=== PATIENT | female | born 1955 | race African-American/Black ===

== ENCOUNTER 2019-04-28 15:47 | Emergency (ER) | payer OTHER ==
[~2019-04-28] VITALS: Ht 160 cm; Wt 77.1 kg
[2019-04-28 17:49] VITALS: BP 129/83
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
[2019-04-28] MEDS ORDERED: IBUPROFEN 200 MG TABLET. PO ONE (18:00)
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
[2019-04-28] MEDS ORDERED: ORPH100T PO (18:45)
[2019-04-28] MEDS ORDERED: IBUP-1007 PO (18:45)
[2019-04-28] MEDS ORDERED: HYDR-3164 PO (18:45)
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
--- NOTE | 2019-04-29 03:17 | EKG ---
[facility] [address] [place] [address] Test Date: 2019-04-28 Test Time: 18:23:14 Pat Name: EDUARDO CRUZ Department: Room: Gender: F Manager Gas: : 1955 Requested By: MODESTO GRIFFIN Order Number: [id number] Reading MD: Measurements Intervals Cache Rate: 56 P: 49 MN: 180 QRS: -9 QRSD: 86 T: -3 QT: 412 QTc: 400 Interpretive Statements SINUS RHYTHM LEFTWARD AXIS T ABNORMALITY IN ANTERIOR LEADS INFEROLATERAL LEADS ABNORMAL ECG RI6.01 No previous ECG available for comparison
== END 2019-04-28 19:06 | disposition home or self-care (01) ==
LOC: ER 15:47
DX: S30.1XXA Contusion of abdominal wall, initial encounter (principal); N13.2 Hydronephrosis with renal and ureteral calculous obstruction; M54.2 Cervicalgia; R51 Headache; Z88.8 Allergy status to other drugs, medicaments and biological substances; V49.9XXA Car occupant (driver) (passenger) injured in unspecified traffic accident, initial encounter; W22.19XA Striking against or struck by other automobile airbag, initial encounter; Y93.89 Activity, other specified; Y92.488 Other paved roadways as the place of occurrence of the external cause; Y99.8 Other external cause status
CPT/HCPCS: 70450; 71046; 72125; 74176; 93005; 99284

== ENCOUNTER 2019-05-03 00:33 | Emergency (ER) | payer BC, OTHER ==
[~2019-05-03] VITALS: Ht 160 cm; Wt 85.3 kg
[~2019-05-03 00:33] MED LIST: HYDR-3164 PO; IBUP-1007 PO; ORPH100T PO
[2019-05-03 01:42] LABS: BILIRUBIN,URINE NEGATIVE (NEG); CLARITY,URINE CLEAR; COLOR,URINE YELLOW; NITRITE,URINE NEGATIVE (NEG); PROTEIN,URINE 30 mg/dL (NEG-TRACE)
[2019-05-03 01:42] LABS: BASO # 0.1 x10^3/uL (0.0-0.2); BASO % 1 % (0-3); EOS # 0.1 x10^3/uL (0.0-0.7); EOS % 1 % (0-3); HEMATOCRIT 38.8 % (36.0-47.0); HEMOGLOBIN 13.1 g/dL (12.0-15.5); LYMPH # 1.8 x10^3/uL (1.0-4.8); LYMPH % 20 % (24-48); MEAN CORPUSCULAR HEMOGLOBIN 31 pg (25-35); MEAN CORPUSCULAR HGB CONC 34 g/dL (31-37); MEAN CORPUSCULAR VOLUME 92 fL (79-100); MONO # 0.6 x10^3/uL (0.0-1.1); MONO % 6 % (0-9); NEUT # 6.2 x10^3/uL (1.8-7.7); NEUT % 71 % (31-73); PLATELET COUNT 248 x10^3/uL (140-400); RED BLOOD COUNT 4.22 x10^6/uL (3.50-5.40); RED CELL DISTRIBUTION WIDTH 13.2 % (11.5-14.5); WHITE BLOOD COUNT 8.7 x10^3/uL (4.0-11.0)
[2019-05-03 01:50] LABS: BACTERIA,URINE MODERATE /HPF (0-FEW); RBC,URINE 20-40 /HPF (0-2); SQUAMOUS EPITHELIAL CELL,UR MOD /LPF
--- NOTE | 2019-05-03 01:56 | PHYS DOC ---
Past Medical History Past Medical History: Hypertension Past Surgical History: Hysterectomy Alcohol Use: None Drug Use: None Adult General Chief Complaint Chief Complaint: FLANK PAIN HPI HPI Patient is a 63 year old -[place] female presents with diffuse abdominal cramping, nausea vomiting in urge to have diarrhea bowel movement starting several hours ago. No fevers chills, patient reports sweats.Reports R flank pain. No urinary frequency urgency or dysuria. Patient evaluated in the emergency department 2 days ago for flank pain with 5 mm proximal R urethral stone. No hematuria. No medications or therapy sticking prior to ED arrival. No prior abdominal surgeries. No history of bowel obstructions. No other acute symptoms or complaints. [] Review of Systems Review of Systems Review symptoms as per history of present illness. All other review symptoms are negative. All other systems were reviewed and found to be within normal limits, except as documented in this note. Current Medications Current Medications Current Medications Medications (Trade) Dose Ordered Sig/Kim Start Time Stop Time Status Last Admin Dose Admin Morphine Sulfate (Morphine Sulfate) 5 mg 1X ONCE 05/03/19 02:00 05/03/19 02:01 DC 05/03/19 01:42 5 MG Ondansetron HCl (Zofran) 4 mg 1X ONCE 05/03/19 02:00 05/03/19 02:01 DC 05/03/19 01:41 4 MG Sodium Chloride 1,000 ml @ 1,000 mls/hr 1X ONCE 05/03/19 02:00 05/03/19 02:59 DC 05/03/19 01:41 1,000 MLS/HR Allergies Allergies Allergies Coded Allergies Type Severity Reaction Last Updated Verified RONI Inhibitors Adverse Reaction Unknown 04/28/19 Yes Physical Exam Physical Exam Constitutional: Well developed, well nourished, no acute distress, non-toxic appearance. [] HENT: Normocephalic, atraumatic, bilateral external ears normal, oropharynx moist, nose normal. [] Eyes: PERRLA, EOMI, conjunctiva normal. [] Neck: Normal range of motion, no tenderness, supple, no stridor. [] Cardiovascular:Heart rate regular rhythm, no murmur [] Lungs & Thorax: Bilateral breath sounds clear to auscultation [] Abdomen: Bowel sounds normal, soft, mild distention, increased bowel sounds.. [] Skin: Warm, dry, no erythema, no rash. [] Back: No tenderness, no CVA tenderness. [] Extremities: No tenderness, no edema. [] Neurologic: Alert and oriented X 3, normal motor function, normal sensory function, no focal deficits noted. [] Psychologic: Affect normal, judgement normal, mood normal. [] Current Patient Data Vital Signs Vital Signs Date Time Temp Pulse Resp B/P (MAP) Pulse Ox O2 Delivery O2 Flow Rate FiO2 05/03/19 03:19 18 98 Nasal Cannula 2.0 05/03/19 02:51 75 193/93 (126) 05/03/19 00:40 98.9 98.9 Lab Values Laboratory Tests Test 05/03/19 00:50 05/03/19 01:00 05/03/19 02:45 Urine Collection Type Unknown Urine Color Yellow Urine Clarity Clear Urine pH 7.0 Urine Specific [place] 1.015 Urine Protein 30 mg/dL (NEG-TRACE) Urine Glucose (UA) Negative mg/dL (NEG) Urine Ketones (Stick) Negative mg/dL (NEG) Urine Blood Moderate (NEG) Urine Nitrite Negative (NEG) Urine Bilirubin Negative (NEG) Urine Urobilinogen Dipstick 1.0 mg/dL (0.2 mg/dL) Urine Leukocyte Esterase Negative (NEG) Urine RBC 20-40 /HPF (0-2) Urine WBC 1-4 /HPF (0-4) Urine Squamous Epithelial Cells Mod /LPF Urine Bacteria Moderate /HPF (0-FEW) Urine Mucus Mod /LPF White Blood Count 8.7 x10^3/uL (4.0-11.0) Red Blood Count 4.22 x10^6/uL (3.50-5.40) Hemoglobin 13.1 g/dL (12.0-15.5) Hematocrit 38.8 % (36.0-47.0) Mean Corpuscular Volume 92 fL (79-100) Mean Corpuscular Hemoglobin 31 pg (25-35) Mean Corpuscular Hemoglobin Concent 34 g/dL (31-37) Red Cell Distribution Width 13.2 % (11.5-14.5) Platelet Count 248 x10^3/uL (140-400) Neutrophils (%) (Auto) 71 % (31-73) Lymphocytes (%) (Auto) 20 % (24-48) L Monocytes (%) (Auto) 6 % (0-9) Eosinophils (%) (Auto) 1 % (0-3) Basophils (%) (Auto) 1 % (0-3) Neutrophils # (Auto) 6.2 x10^3/uL (1.8-7.7) Lymphocytes # (Auto) 1.8 x10^3/uL (1.0-4.8) Monocytes # (Auto) 0.6 x10^3/uL (0.0-1.1) Eosinophils # (Auto) 0.1 x10^3/uL (0.0-0.7) Basophils # (Auto) 0.1 x10^3/uL (0.0-0.2) Sodium Level 139 mmol/L (136-145) Potassium Level 4.0 mmol/L (3.5-5.1) Chloride Level 104 mmol/L (98-107) Carbon Dioxide Level 26 mmol/L (21-32) Anion Gap 9 (6-14) Blood Urea Nitrogen 21 mg/dL (7-20) H Creatinine 1.2 mg/dL (0.6-1.0) H Estimated GFR (Cockcroft-Gault) 54.9 BUN/Creatinine Ratio 18 (6-20) Glucose Level 150 mg/dL (70-99) H Calcium Level 9.4 mg/dL (8.5-10.1) Total Bilirubin 0.4 mg/dL (0.2-1.0) Aspartate Amino Transferase (AST) 21 U/L (15-37) Alanine Aminotransferase (ALT) 20 U/L (14-59) Alkaline Phosphatase 74 U/L (46-116) Total Protein 7.4 g/dL (6.4-8.2) Albumin 3.5 g/dL (3.4-5.0) Albumin/Globulin Ratio 0.9 (1.0-1.7) L Lipase 96 U/L (73-393) Laboratory Tests 05/03/19 01:00 Laboratory Tests 05/03/19 02:45 EKG EKG [] Radiology/Procedures Radiology/Procedures [] Course & Med Decision Making Course & Med Decision Making Pertinent Labs and Imaging studies reviewed. (See chart for details) [Symptoms likely related to right ureteral stone. Patient resting comfortably with treatment. Recommendations are supportive care with PCP/urology follow-up. Return precautions reviewed.] Dragon Disclaimer Dragon Disclaimer This electronic medical record was generated, in whole or in part, using a voice recognition dictation system. Departure Departure Impression: Primary Impression: Acute flank pain Additional Impression: Ureteral stone Disposition: HOME, SELF-CARE Condition: GOOD Referrals: HUEY ROSA (PCP) Patient Instructions: Kidney Stones, [id number] Additional Instructions: Please increase fluids and strain urine for stone. Take medications as directed and follow-up with your PCP in 2-3 days for reevaluation. Return to the ED if new or worsening symptoms Scripts Ondansetron Hcl (ZOFRAN) 4 Mg Tablet 1 TAB PO Q6HRS, #10 TAB 0 Refills Prov: CLAYTON VANN DO 05/03/19 Hydrocodone Bit/Acetaminophen (HYDROCODONE-APAP 10-325 ) 1 Tab Tablet 1 TAB PO PRN Q6HRS PRN for PAIN, #15 TAB 0 Refills Prov: CLAYTON VANN DO 05/03/19 Tamsulosin Hcl (FLOMAX) 0.4 Mg Cap.er.24h 1 CAP PO DAILY, #10 CAP 0 Refills Prov: CLAYTON VANN DO 05/03/19 Problem Qualifiers CLAYTON VANN DO May 03, 2019 01:56
[2019-05-03] MEDS ORDERED: ONDANSETRON PF 4 MG/2 ML VIAL. IVP ONE ×2 (02:00→04:30)
[2019-05-03] MEDS ORDERED: IV NORMAL SALINE 1000ML BAG 1,000 ML IV ONE (02:00)
[2019-05-03] MEDS ORDERED: MORPHINE SULFATE 10 MG/ML VIAL. IV ONE (02:00)
[2019-05-03 03:08] LABS: CALCIUM 9.4 mg/dL (8.5-10.1); CREATININE 1.2 mg/dL (0.6-1.0)
[2019-05-03 03:09] LABS: GFR 54.9
[2019-05-03 03:14] LABS: ALBUMIN 3.5 g/dL (3.4-5.0); ALBUMIN/GLOBULIN RATIO 0.9 (1.0-1.7); TOTAL BILIRUBIN 0.4 mg/dL (0.2-1.0); TOTAL PROTEIN 7.4 g/dL (6.4-8.2)
[2019-05-03] MEDS ORDERED: HYDR-2769 PO (03:40)
[2019-05-03] MEDS ORDERED: ONDA4TAB7 PO (03:40)
[2019-05-03] MEDS ORDERED: TAMS0.4C97 PO (03:40)
[2019-05-03 03:51] VITALS: BP 178/84
[2019-05-03] MEDS ORDERED: KETOROLAC 15 MG/ML VIAL. IVP ONE (04:00)
== END 2019-05-03 04:37 | disposition home or self-care (01) ==
LOC: ER 00:33
DX: N20.1 Calculus of ureter (principal); R10.9 Unspecified abdominal pain; R11.2 Nausea with vomiting, unspecified; R19.7 Diarrhea, unspecified; I10 Essential (primary) hypertension; Z90.710 Acquired absence of both cervix and uterus; Z88.8 Allergy status to other drugs, medicaments and biological substances
CPT/HCPCS: 36415; 80053; 81001; 83690; 85025; 87086; 96361; 96374; 96375; 96376; 99285; J1885; J2270; J2405; J7030

== ENCOUNTER 2019-05-24 13:53 | Emergency (ER) | payer OTHER, BC ==
[~2019-05-24] VITALS: Ht 160 cm; Wt 83.9 kg
[~2019-05-24 13:53] MED LIST changes: +HYDR-2769 PO; +ONDA4TAB7 PO; +TAMS0.4C97 PO
[2019-05-24 13:55] VITALS: BP 175/90
--- NOTE | 2019-05-24 15:29 | RAD ---
Bilateral lower extremity venous doppler ultrasound Indication: Knot on leg. . Technique: Color Doppler, grayscale, and spectral waveform analysis is used to evaluate the right and left lower extremity deep venous system, including the common femoral vein, superficial femoral vein, popliteal vein, and visualized calf veins. Right leg: No evidence of deep venous thrombosis. Normal response to augmentation, normal compressibility and normal phasicity is demonstrated. Visualized calf veins are patent. Left leg: No evidence of deep venous thrombosis. Normal response to augmentation, normal compressibility and normal phasicity is demonstrated. Visualized calf veins are patent. Small hypoechoic structures are seen in the area of nodules at the left calf, could represent small superficial thrombosed varicosities or cyst. No flow or vascularity is seen. Impression: Negative for deep venous thrombosis Electronically signed by: David Waters MD (05/24/2019 3:26 PM) [facility]
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
== END 2019-05-24 15:45 | disposition home or self-care (01) ==
LOC: ER 13:53
DX: I83.893 Varicose veins of bilateral lower extremities with other complications (principal); I10 Essential (primary) hypertension; Z90.710 Acquired absence of both cervix and uterus; Z88.8 Allergy status to other drugs, medicaments and biological substances
CPT/HCPCS: 93970; 99284

== ENCOUNTER 2020-08-07 20:01 | Emergency (ER) | payer BC, OTHER ==
[~2020-08-07] VITALS: Ht 160 cm; Wt 81.8 kg
--- NOTE | 2020-08-07 20:13 | PHYS DOC ---
Past Medical History Past Medical History: High Cholesterol, Hypertension Past Surgical History: Hysterectomy Smoking Status: Never Smoker Alcohol Use: None Drug Use: None General Adult EDM: Chief Complaint: MECHANICAL FALL HPI: HPI: Patient is a 65 year old female with history of high cholesterol, high blood pressure, who presents the ED today complaining of mild intermittent sharp left generalized knee pain, symptoms began a couple minutes prior to coming to the ED after she twisted her knee, slipped and fell. Patient denies any loss of consciousness. Denies hitting her head on the ground. Reports the pain is worse on weightbearing. Review of Systems: Review of Systems: Constitutional: Denies fever or chills. [] Musculoskeletal: Reports left knee pain. Denies back pain Integument: Denies rash. [] Neurologic: Denies headache, focal weakness or sensory changes. [] Psychiatric: Denies depression or anxiety. [] Heart Score: C/O Chest Pain: N/A Risk Factors: Risk Factors: DM, Current or recent (<one month) smoker, HTN, HLP, family history of CAD, obesity. Risk Scores: Score 0 - 3: 2.5% MACE over next 6 weeks - Discharge Home Score 4 - 6: 20.3% MACE over next 6 weeks - Admit for Clinical Observation Score 7 - 10: 72.7% MACE over next 6 weeks - Early Invasive Strategies Allergies: Allergies: Allergies Coded Allergies Type Severity Reaction Last Updated Verified RONI Inhibitors Adverse Reaction Intermediate 05/03/19 Yes Physical Exam: PE: Constitutional: Well developed, well nourished, no acute distress, non-toxic appearance. [] Skin: Warm, dry, no erythema, no rash. [] Back: No tenderness, no CVA tenderness. [] Extremities: Left knee with no obvious deformity. Tenderness on palpation of anterior left knee as well as posterior knee. Limited range of motion to the left knee. +2 left pedal pulse. Cap refill less than 2 seconds to left toes Neurologic: Alert and oriented X 3, normal motor function, normal sensory function, no focal deficits noted. [] Psychologic: Affect normal, judgement normal, mood normal. [] EKG: EKG: [] Radiology/Procedures: Radiology/Procedures: []PROCEDURE: KNEE LEFT 3V Left knee 3 views 08/07/2020. Reason for exam: Pain after falling. There are no available comparison studies. There is separation at the tip of the proximal fibula and suggestion of slight compression of the medial tibial plateau. No other fracture is seen. There is probably a small joint effusion. IMPRESSION: Mild depression of medial tibial plateau and avulsion of proximal fibula. Electronically signed by: Cecilio Ramirez Jr., MD (08/07/2020 8:40 PM) [facility] DICTATED and SIGNED BY: CECILIO RAMIREZ Jr, MD DATE: 08/07/[id number] 0 Course & Med Decision Making: Course & Med Decision Making Pertinent Labs and Imaging studies reviewed. (See chart for details) This is a 65-year-old female patient presenting to the ED today with left knee pain status post falling today. Left knee x-rays interpreted by radiologist were noted for -mild depression of medial tibial plateau and avulsion of proximal fibula. I spoke to Dr. Choudhary who requested a repeat of the lateral view of the x-rays which were done. He looked at them and stated patient can be discharged to home with immobilizer and crutches. Patient was placed in a left knee immobilizer and crutches were provided, neurovascular exam post immobilizer application is normal. Ice elevation encouraged. Follow-up with orthopedic doctor on Sunday Gera Disclaimer: Gera Disclaimer: This electronic medical record was generated, in whole or in part, using a voice recognition dictation system. Departure Departure Impression: Primary Impression: Fall from standing Qualified Codes: W19.XXXA - Unspecified fall, initial encounter Additional Impression: Fibula fracture Qualified Codes: S82.832A - Other fracture of upper and lower end of left fibula, initial encounter for closed fracture Disposition: 01 DC HOME SELF CARE/HOMELESS Condition: STABLE Referrals: HUEY ROSA (PCP) ARUN CHOUDHARY MD Please call his office on Sunday and st up a follow up appointment Patient Instructions: Fibular Fracture, Adult, Treated Without Immobilization Additional Instructions: You were evaluated in the emergency room, you were noted to have avulsion of your proximal fibula which is the bone behind your knee as well as depression of the tibial plateau. Please contact the provided orthopedic doctor on Sunday and set up a follow-up appointment. Try and elevate your extremity and wear the immobilizer provided. Scripts Hydrocodone Bit/Acetaminophen (HYDROCODONE-APAP 5-325 ) 1 Tab Tablet 1 TAB PO PRN Q6HRS PRN for PAIN, #20 TAB 0 Refills Prov: BREANNA MENDES APRN 08/07/20 BREANNA MENDES APRN Aug 07, 2020 20:12
--- NOTE | 2020-08-07 20:43 | RAD ---
Left knee 3 views 08/07/2020. Reason for exam: Pain after falling. There are no available comparison studies. There is separation at the tip of the proximal fibula and suggestion of slight compression of the med ial tibial plateau. No other fracture is seen. There is probably a small joint effusion. IMPRESSION: Mild depression of medial tibial plateau and avulsion of proximal fibula. Electronically signed by: Faheem Ramirez Jr., MD (08/07/2020 8:40 PM) [facility]
[2020-08-07 21:37] VITALS: BP 196/97
[2020-08-07] MEDS ORDERED: HYDR-2761 PO (21:54)
[2020-08-07] MEDS: NAPROXEN 500 MG TABLET PO ONE (22:06)
[2020-08-07] MEDS: HYDROcodone/APAP 5/325MG 1 TAB TABLET PO ONE (22:06)
== END 2020-08-07 22:07 | disposition home or self-care (01) ==
LOC: ER 20:01
DX: S82.832A Other fracture of upper and lower end of left fibula, initial encounter for closed fracture (principal); M25.562 Pain in left knee; E78.00 Pure hypercholesterolemia, unspecified; I10 Essential (primary) hypertension; Z90.710 Acquired absence of both cervix and uterus; W01.0XXA Fall on same level from slipping, tripping and stumbling without subsequent striking against object, initial encounter; Y93.89 Activity, other specified; Y92.89 Other specified places as the place of occurrence of the external cause; Y99.8 Other external cause status
CPT/HCPCS: 29505; 73562; 99285